=== PATIENT | male | born 1945 | race Caucasian/White ===

== ENCOUNTER 2017-12-30 13:17 | Outpatient (CLI) | payer OTHER, MEDICARE ==
--- NOTE | 2017-12-31 15:27 | MRI Report ---
Reason: SHOULDER IMPINGEMENT SYNDROME,RIGHT,PAIN IN RIGHT Procedure Date: 12/30/2017 Accession Number: [id number] / [id number] Procedure: MRI - Shoulder RT W/O CPT Code: FULL RESULT: EXAM: RIGHT SHOULDER MRI WITHOUT CONTRAST. EXAM DATE: 12/30/2017 01:59 PM. CLINICAL HISTORY: Right shoulder pain and impingement syndrome. COMPARISON: None. TECHNIQUE: Multiplanar, multisequence T1-weighted and fluid-sensitive sequences of the shoulder without contrast. Other: None. FINDINGS: Acromioclavicular Region: The acromion is type II. Mild acromioclavicular joint osteoarthritis. The coracoacromial and coracoclavicular ligaments are intact. Small amount of fluid at the subacromial subdeltoid bursa. Glenohumeral Region: The humeral head is subluxed slightly superiorly relative to the glenoid. Small to moderate-sized joint effusion. Synovial thickening consistent with synovitis. The articular cartilage is unremarkable. The glenohumeral ligaments and joint capsule are unremarkable. Bone Marrow: Small subcortical cysts and enthesophytes at the greater tuberosity. Small subcortical cyst at the lesser tuberosity. No acute fracture or bone lesions. Labrum: The labrum is unremarkable on this nonarthrographic study. Musculature/Rotator Cuff: There is a full-thickness, full width tear of the supraspinatus tendon. The supraspinatus tendon is retracted by approximately 4.5 cm. There is a full-thickness, full width tear of the infraspinatus tendon. The infraspinatus tendon is retracted by approximately 5 cm. The teres minor tendon is intact. There is subscapularis tendinosis. Grade 1-2 atrophy of the supraspinatus muscle and grade 2-3 atrophy of the infraspinatus muscle. Biceps Tendon: There is proximal long head biceps tendinosis. Other: The subcutaneous tissues are unremarkable. IMPRESSION: 1. Full-thickness, full width tears of the supraspinatus and infraspinatus tendons. Both tendons are retracted. Grade 1-2 atrophy of the supraspinatus muscle and grade 2-3 atrophy of the infraspinatus muscle. 2. Subscapularis tendinosis. 3. Proximal long head biceps tendinosis. 4. Small to moderate-sized glenohumeral joint effusion. Synovitis. 5. Mild acromioclavicular joint osteoarthritis. 6. Small amount of fluid at the subacromial subdeltoid bursa. [facility] MUSCULOSKELETAL RADIOLOGY SECTION
== END 2017-12-30 13:18 | disposition home or self-care (01) ==
LOC: DI 13:17
PROVIDERS: ATTEND Nurse Practitioner Family
DX: M75.41 Impingement syndrome of right shoulder (principal); M75.101 Unspecified rotator cuff tear or rupture of right shoulder, not specified as traumatic; M19.011 Primary osteoarthritis, right shoulder; M65.811 Other synovitis and tenosynovitis, right shoulder; M75.91 Shoulder lesion, unspecified, right shoulder; M25.411 Effusion, right shoulder

== ENCOUNTER 2018-12-07 01:48 | Outpatient (CLI) | payer MEDICARE | END 2018-12-07 01:49 | disposition EMS.NT | LOC: EMS 01:48 | PROVIDERS: ATTEND Surgery | DX: R53.1 Weakness (principal) ==

== ENCOUNTER 2018-12-07 03:09 | Emergency (ER) | payer MEDICARE ==
--- NOTE | 2018-12-07 03:26 | ED Physician Documentation ---
History of Present Illness - Stated complaint Stated Complaint: WEAKNESS/COUGH - Chief complaint Chief Complaint: Resp - Additonal information Additional information: This is a 73-year-old male with a history of hypertension, who presents with an altered mental status and a fall. Patient's states that he was "low energy "all yesterday, and spent most the day resting. He denies any specific pain. When he came to dinner last night he seemed kind of groggy and out of it, and had some generalized weakness. She did not see him drink alcohol use any drugs, he does use marijuana from time to time. He was not complaining of fever, he has had a cough for the last week and this is been productive of some greenish sputum at times. No abdominal pain or vomiting, no chest pain. Tonight patient's woke up to find that he rolled out of bed and he was unable to get up. He seemed very weak and was unable to stand. He denies hitting his head, he is not on anticoagulants. EMS was called and brought him here for further evaluation. He currently states that he feels somewhat groggy and out of it, his states that typically he is very sharp. At baseline he does yoga and is strong and has no issues with ambulation. He does have a headache, which is mild to moderate in severity and towards the vertex of his head. Review of Systems Constitutional: denies: Fever Eyes: denies: Loss of vision Nose: reports: Congestion Cardiac: denies: Chest pain / pressure Respiratory: denies: Dyspnea : denies: Dysuria Skin: denies: Rash Musculoskeletal: denies: Neck pain Neurologic: reports: Generalized weakness, Headache Immunocompromised: denies: Immunocompromised PD PAST MEDICAL HISTORY - Past Medical History Cardiovascular: None Respiratory: None Endocrine/Autoimmune: None GI: None : None HEENT: None Psych: None Musculoskeletal: None Derm: Psoriasis - Past Surgical History Ortho: ACL reconstruction, Arthroscopic surgery, Other - Present Medications Home Medications: Ambulatory Orders Medication Instructions Recorded Confirmed No Known Home Medications 03/05/16 03/07/16 - Allergies Allergies/Adverse Reactions: Allergies Allergy/AdvReac Type Severity Reaction Status Date / Time No Known Drug Allergies Allergy Verified 12/07/18 04:03 PD ED PE NORMAL - Vitals Vital signs reviewed: Yes - General General: No acute distress, Other (Slightly somnolent, answers questions but seems slightly confused.) - HEENT HEENT: PERRL, Other (Poor dentition. Area of redness to his vertex/occiput, which may be an area of impact. 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 He knows his name. He is slightly somnolent, he will stay awake and talk but when he stopped talking with the patient he will trip to sleep. On his motor exam he has 5 out of 5 strength with hand squeeze elbow flexion and extension. He has some weakness with shoulder abduction on the right but his states this is his baseline because of an old shoulder injury. His strength is symmetric in the lower extremities 4+/5 with hip flexion bilaterally, 5/5 with ankle dorsi flexion plantarflexion.) - Psych Psych: Normal mood, Normal affect Results - Vitals Vitals: Vital Signs - 24 hr 12/07/18 12/07/18 12/07/18 03:10 03:50 03:56 Temperature 36.8 C Heart Rate 61 69 71 Respiratory 17 20 Rate Blood Pressure 143/97 H 148/95 H 143/98 H O2 Saturation 96 98 100 12/07/18 12/07/18 12/07/18 04:04 04:28 04:46 Temperature 37.3 C Heart Rate 57 L 60 62 Respiratory 17 17 17 Rate Blood Pressure 142/92 H 143/90 H 142/87 H O2 Saturation 99 99 99 12/07/18 05:00 Temperature Heart Rate 62 Respiratory 17 Rate Blood Pressure 145/88 H O2 Saturation 100 Oxygen O2 Source Room air - EKG (time done) 3:15 Other comments: Other comments (Rate 61, rhythm sinus, there is no ST segment elevation or depression, there is an RSR prime wave in V1. There is an atrial premature complex. [place] is normal.) - Labs Labs: Laboratory Tests 12/07/18 12/07/18 12/07/18 03:27 03:27 03:27 WBC 10.0 RBC 3.91 L Hgb 12.5 L Hct 37.0 L MCV 94.6 H MCH 32.0 H MCHC 33.8 RDW 12.0 Plt Count 279 MPV 9.9 Neut # (Auto) 7.6 H Lymph # (Auto) 1.3 L [place] # (Auto) 1.0 Eos # (Auto) 0.1 Baso # (Auto) 0.0 Absolute Nucleated RBC 0.00 Nucleated RBC % 0.0 PT INR APTT Sodium 136 Potassium 3.8 Chloride 101 Carbon Dioxide 27 Anion Gap 8.0 BUN 17 Creatinine 0.8 Estimated GFR (MDRD) 95 Glucose 127 H Lactic Acid Calcium 9.5 Total Bilirubin 0.8 AST 17 ALT 14 Alkaline Phosphatase 87 Ammonia < 10.0 Troponin I High Sens Total Protein 7.1 Albumin 3.7 Globulin 3.4 Albumin/Globulin Ratio 1.1 Lipase 31 TSH Urine Color Urine Clarity Urine pH Ur Specific [place] Urine Protein Urine Glucose (UA) Urine Ketones Urine Occult Blood Urine Nitrite Urine Bilirubin Urine Urobilinogen Ur Leukocyte Esterase Urine RBC Urine WBC Ur Squamous Epith Cells Urine Bacteria Ur Microscopic Review Urine Culture Comments Urine Opiates Screen Ur Oxycodone Screen Urine Methadone Screen Ur Propoxyphene Screen Ur Barbiturates Screen Ur Tricyclics Screen Ur Phencyclidine Scrn Ur Amphetamine Screen U Methamphetamines Scrn U Benzodiazepines Scrn Urine Cocaine Screen U Cannabinoids Screen Ethyl Alcohol < 5.0 12/07/18 12/07/18 12/07/18 03:27 03:27 03:27 WBC RBC Hgb Hct MCV MCH MCHC RDW Plt Count MPV Neut # (Auto) Lymph # (Auto) [place] # (Auto) Eos # (Auto) Baso # (Auto) Absolute Nucleated RBC Nucleated RBC % PT INR APTT Sodium Potassium Chloride Carbon Dioxide Anion Gap BUN Creatinine Estimated GFR (MDRD) Glucose Lactic Acid 0.9 Calcium Total Bilirubin AST ALT Alkaline Phosphatase Ammonia Troponin I High Sens 7.5 Total Protein Albumin Globulin Albumin/Globulin Ratio Lipase TSH 0.81 Urine Color Urine Clarity Urine pH Ur Specific [place] Urine Protein Urine Glucose (UA) Urine Ketones Urine Occult Blood Urine Nitrite Urine Bilirubin Urine Urobilinogen Ur Leukocyte Esterase Urine RBC Urine WBC Ur Squamous Epith Cells Urine Bacteria Ur Microscopic Review Urine Culture Comments Urine Opiates Screen Ur Oxycodone Screen Urine Methadone Screen Ur Propoxyphene Screen Ur Barbiturates Screen Ur Tricyclics Screen Ur Phencyclidine Scrn Ur Amphetamine Screen U Methamphetamines Scrn U Benzodiazepines Scrn Urine Cocaine Screen U Cannabinoids Screen Ethyl Alcohol 12/07/18 12/07/18 03:27 03:55 WBC RBC Hgb Hct MCV MCH MCHC RDW Plt Count MPV Neut # (Auto) Lymph # (Auto) [place] # (Auto) Eos # (Auto) Baso # (Auto) Absolute Nucleated RBC Nucleated RBC % PT 14.0 H INR 1.2 APTT 29.8 Sodium Potassium Chloride Carbon Dioxide Anion Gap BUN Creatinine Estimated GFR (MDRD) Glucose Lactic Acid Calcium Total Bilirubin AST ALT Alkaline Phosphatase Ammonia Troponin I High Sens Total Protein Albumin Globulin Albumin/Globulin Ratio Lipase TSH Urine Color YELLOW Urine Clarity CLEAR Urine pH 7.0 Ur Specific [place] 1.015 Urine Protein NEGATIVE Urine Glucose (UA) NEGATIVE Urine Ketones NEGATIVE Urine Occult Blood SMALL H Urine Nitrite NEGATIVE Urine Bilirubin NEGATIVE Urine Urobilinogen 0.2 (NORMAL) Ur Leukocyte Esterase NEGATIVE Urine RBC 0-5 Urine WBC 0-3 Ur Squamous Epith Cells NONE SEEN Urine Bacteria Rare Ur Microscopic Review INDICATED Urine Culture Comments NOT INDICATED Urine Opiates Screen NEGATIVE Ur Oxycodone Screen NEGATIVE Urine Methadone Screen NEGATIVE Ur Propoxyphene Screen NEGATIVE Ur Barbiturates Screen NEGATIVE Ur Tricyclics Screen NEGATIVE Ur Phencyclidine Scrn NEGATIVE Ur Amphetamine Screen NEGATIVE U Methamphetamines Scrn NEGATIVE U Benzodiazepines Scrn NEGATIVE Urine Cocaine Screen NEGATIVE U Cannabinoids Screen NEGATIVE Ethyl Alcohol - Rads (name of study) CT head Radiology: Other (Left subdural hematoma with 18 mm of midline shift.) CXR Radiology: Other (No acute cardiopulmonary abnormality) PD MEDICAL DECISION MAKING - ED course Complexity details: considered differential (Pneumonia, UTI, electrolyte abnormality, head bleed, concussion, hematoma, thyroid disturbance, Drug use/intoxication, ACS) ED course: On arrival patient has unremarkable vital signs, he is nonfocal on his neurologic exam (He has slight right shoulder weakness but is states this is his baseline from a past injury), but he is somnolent and he will drift to sleep if not constantly stimulated. His blood sugar is normal. Patient was promptly taken to CT, I reviewed the CT scan at 3:35, this shows a obvious large subdural with midline shift. We contacted [facility] and activated the helicopter for transportation. Patient remains somewhat somnolent, but again is nonfocal on his neuro exam. I updated him and his , patient understands the severity of his condition and agrees with transfer. Patient does not take any blood thinners, his platelets are normal, INR and PTT within normal limits, his labs are unrevealing other than a very mild anemia. He has a negative ammonia, negative troponin, a normal chest x-ray. I spoke with Dr. Toledo of the [facility], as well as the neurosurgery team with Dr. Rohan amaro. Patient's blood pressure is between 120-140 systolic, he does not require control at this time. He has not had deterioration of his mental status while he is here. After reviewing the plan of care with patient and his patient was transferred via air ambulance. Departure - Departure Disposition: 02 Transfer Acute Care Hosp Clinical Impression: Subdural hematoma Altered mental status Qualifiers: Altered mental status type: unspecified Qualified Code(s): R41.82 - Altered mental status, unspecified Condition: Serious Discharge Date/Time: 12/07/18 05:06
[2018-12-07 03:48] LABS: BASOPHILS % (AUTO) 0.4 %; EOSINOPHILS # (AUTO) 0.1 10^3/uL (0.0-0.7); EOSINOPHILS % (AUTO) 0.8 %; HGB - HEMOGLOBIN 12.5 g/dL (14.0-18.0); LYMPHOCYTES # (AUTO) 1.3 10^3/uL (1.5-3.5); LYMPHOCYTES % (AUTO) 12.6 %; MEAN CORPUSCULAR HGB CONC 33.8 g/dL (32.0-36.0); MEAN CORPUSCULAR VOLUME 94.6 fL (80.0-94.0); MEAN PLATELET VOLUME 9.9 fL (7.4-11.4); MONOCYTES % (AUTO) 9.6 %; NEUTROPHILS # (AUTO) 7.6 10^3/uL (1.5-6.6); NEUTROPHILS % (AUTO) 76.1 %; PLT - PLATELET COUNT 279 10^3/uL (130-450); RED BLOOD COUNT 3.91 10^6/uL (4.70-6.10)
[2018-12-07 03:51] LABS: ALBUMIN 3.7 g/dL (3.2-5.5); ALBUMIN/GLOBULIN RATIO 1.1 (1.0-2.2); ALKALINE PHOSPHATASE 87 IU/L (42-121); ALT ALANINE AMINOTRANSFERASE 14 IU/L (10-60); AST ASPARTATE AMINOTRANSFERASE 17 IU/L (10-42); BILIRUBIN,TOTAL 0.8 mg/dL (0.2-1.0); BUN - BLOOD UREA NITROGEN 17 mg/dL (6-20); CALCIUM 9.5 mg/dL (8.5-10.3); CARBON DIOXIDE - CO2 27 mmol/L (21-32); CHLORIDE 101 mmol/L (101-111); CREATININE 0.8 mg/dL (0.6-1.2); GFR - MDRD 95 (>89); GLUCOSE 127 mg/dL (70-100); LIPASE 31 U/L (22-51); SODIUM 136 mmol/L (135-145); TOTAL PROTEIN 7.1 g/dL (6.7-8.2)
--- NOTE | 2018-12-07 03:57 | CT Report ---
Reason: AMS, fall Procedure Date: 12/07/2018 Accession Number: [id number] / [id number] Procedure: CT - HEAD WO CPT Code: FULL RESULT: EXAM: CT HEAD EXAM DATE: 12/07/2018 03:40 AM. CLINICAL HISTORY: AMS, fall. COMPARISON: None. TECHNIQUE: Multiaxial CT images were obtained from the foramen magnum to the vertex. Reformats: Sagittal and coronal. IV contrast: None. In accordance with CT protocol optimization, one or more of the following dose reduction techniques were utilized for this exam: automated exposure control, adjustment of mA and/or KV based on patient size, or use of iterative reconstructive technique. FINDINGS: Large left convexity holohemispheric subdural hematoma with thickness measurements on the order of 18 mm. Hypodense component anteriorly with hyperdense component seen layering posteriorly. Sulci are effaced over the left convexity. There is midline shift to the right by 18 mm. There is partial effacement of the basal cisterns. Third ventricle is effaced by mass-effect, mild dilatation of the right temporal horn, an element of entrapment may be present. No intraparenchymal hemorrhage, evidence of infarct. Mild mucosal thickening within the maxillary antra. Skull base, paranasal sinuses, mastoids, orbits and calvarium are unremarkable. No fracture is seen. IMPRESSION: 1. Large volume left holohemispheric subdural hematoma measuring up to 18 mm in thickness. 2. Sulci are effaced over the left convexity. There is midline shift to the right by 18 mm. There is partial effacement of the basal cisterns. 3. Third ventricle is effaced by mass-effect, mild dilatation of the right temporal horn, an element of early entrapment may be present. [facility] The critical result notification system was initiated by Dr. Elliot Mann at 03:50 AM on 12/07/2018. The above critical result findings were discussed with Juanjose Henry by Dr. Elliot Mann at 03:52 AM on 12/07/2018.
[2018-12-07 04:06] LABS: MUDS CUTOFF CONCENTRATIONS CUTOFF CONC BELOW:
[2018-12-07 04:08] LABS: BILIRUBIN,URINE NEGATIVE (NEGATIVE); GLUCOSE, URINE (UA) NEGATIVE (NEGATIVE); KETONES,URINE (UA) NEGATIVE (NEGATIVE); LEUKOCYTE ESTERASE, URINE NEGATIVE (NEGATIVE); NITRITE,URINE NEGATIVE (NEGATIVE); OCCULT BLOOD,URINE SMALL (NEGATIVE); PROTEIN,URINE NEGATIVE (NEGATIVE); UROBILINOGEN,URINE 0.2 (NORMAL) E.U./dL (NORMAL)
--- NOTE | 2018-12-07 04:08 | XRAY Report ---
Reason: cough/ams Procedure Date: 12/07/2018 Accession Number: [id number] / [id number] Procedure: XR - Chest 1 View X-Ray CPT Code: 64463 FULL RESULT: EXAM: CHEST RADIOGRAPHY EXAM DATE: 12/07/2018 03:56 AM. CLINICAL HISTORY: Cough/ams. COMPARISON: None. TECHNIQUE: 1 view. FINDINGS: Lungs/Pleura: No focal opacities evident. No pleural effusion. No pneumothorax. Mediastinum: Within exam limitations, the cardiomediastinal contour is normal. Other: None. IMPRESSION: Normal single view chest. [facility]
[2018-12-07 04:09] LABS: CLARITY,URINE CLEAR (CLEAR)
[2018-12-07 04:17] LABS: BACTERIA,URINE Rare /HPF (None Seen); RBC,URINE 0-5 /HPF (0-5); SQUAMOUS EPITHELIAL CELL,UR NONE SEEN (<= Few)
[2018-12-07 04:18] LABS: AMPHETAMINE SCREEN,URINE NEGATIVE (NEGATIVE); BENZODIAZEPINES SCREEN, URINE NEGATIVE (NEGATIVE); COCAINE SCREEN URINE NEGATIVE (NEGATIVE); METHADONE SCREEN, URINE NEGATIVE (NEGATIVE); METHAMPHETAMINES SCREEN, URINE NEGATIVE (NEGATIVE); OPIATE SCREEN, URINE NEGATIVE (NEGATIVE); OXYCODONE SCREEN, URINE NEGATIVE (NEGATIVE); PROPOXYPHENE SCREEN, URINE NEGATIVE (NEGATIVE); TRICYCLIC ANTIDEPRESSANT,URINE NEGATIVE (NEGATIVE)
[2018-12-07 05:01] VITALS: BP 145/88
[2018-12-07 05:09] LABS: INR 1.2 (0.8-1.2)
[2018-12-07 05:16] LABS: PARTIAL THROMBOPLASTIN TIME 29.8 secs (24.9-33.3)
== END 2018-12-07 05:06 | disposition short-term general hospital (02) ==
LOC: ED 03:09
DX: S06.5X0A Traumatic subdural hemorrhage without loss of consciousness, initial encounter (principal); R41.82 Altered mental status, unspecified; I10 Essential (primary) hypertension
CPT/HCPCS: 36415; 70450; 71045; 80053; 80306; 80320; 81001; 81003; 82140; 83605; 83690; 84443; 84484; 85025; 85610; 85730; 87086; 93005; 99284; 99285

== ENCOUNTER 2021-01-12 14:08 | Outpatient (CLI) | payer MEDICARE | END 2021-01-12 14:09 | disposition home or self-care (01) | LOC: COV 14:08 | PROVIDERS: ATTEND Family Medicine | DX: Z20.822 Contact with and (suspected) exposure to COVID-19 (principal) ==